=== PATIENT | male | born 1980 | race Caucasian/White ===

== ENCOUNTER 2020-08-01 17:07 | Inpatient (IN) | payer SELFPAY ==
[~2020-08-01] VITALS: Ht 185.4 cm; Wt 63.1 kg
[2020-08-01 17:24] VITALS: BP 142/93
[2020-08-01 18:14] LABS: HEMATOCRIT 39.4 % (42.0-52.0); MEAN CELL VOLUME 88.3 fl (80.0-94.0); MEAN CORPUSCULAR HGB 35.2 pg (27.0-31.0); MEAN PLATELET VOLUME 8.8 fl (9.6-12.3); PLATELET COUNT AUTOMATED 212 10*3/uL (130-400); RED BLOOD COUNT 4.46 10*6/uL (4.50-5.90); RED CELL DISTRI WIDTH 10.8 % (0-14.5); WHITE BLOOD COUNT 13.1 10*3/uL (4.8-10.8)
[2020-08-01 18:26] LABS: ACT PARTIAL THROMBO TIME 30.5 SECONDS (20.0-32.1)
[2020-08-01 18:29] LABS: MEAN CORPUSCULAR HGB CONC 39.8 g/dl (33.0-37.0)
[2020-08-01 18:30] LABS: ALBUMIN 3.7 gm/dl (3.1-4.5); ALKALINE PHOSPHATASE 99 U/L (45-117); BUN 16 mg/dl (7-24); CREATININE 0.73 mg/dL (0.70-1.30); LIPASE 60 U/L (73-393); SGOT/AST 346 IU/L (3-35); SGPT/ALT 87 U/L (12-78); TOTAL PROTEIN 7.9 gm/dL (6.4-8.2)
[2020-08-01 18:34] LABS: SODIUM 98 mmol/L (136-145)
[2020-08-01 18:35] LABS: ACETAMINOPHEN (TYLENOL) < 5.0 ug/ml (10-30); CHLORIDE < 50 mmol/L (98-107); ETHYL ALCOHOL < 3.0 mg/dl (<3); TROPONIN I < 0.015 ng/ml (<0.045)
[2020-08-01 18:52] LABS: ATYPICAL LYMPHS 2 % (0-0); TOTAL CELLS COUNTED 100 #CELLS
[2020-08-01 18:53] LABS: PLATELET SUFFICIENCY NORMAL (NORMAL)
[2020-08-01 19:17] LABS: BILIRUBIN Negative (Negative); BLOOD 3+ (Negative); CLARITY Clear (Clear); COLOR Dark Yellow (Yellow); GLUCOSE Negative (Negative); KETONE 1+ (Negative); LEUKO ESTERASE Negative (Negative); NITRITE Negative (Negative); SPECIFIC GRAVITY 1.015 (1.001-1.030)
[2020-08-01 19:21] LABS: EPITHELIAL CELLS 0-2; FINE GRANULAR CAST 0-2
[2020-08-01 19:22] LABS: BACTERIA TRACE
[2020-08-01 19:25] LABS: URINE AMPHETAMINES < 1000 (1000ng/ml); URINE BARBITURATES < 200 (200ng/ml); URINE BENZODIAZEPINES < 200 (200ng/ml); URINE CANNABINOIDS (THC) < 50 (50ng/ml); URINE COCAINE < 300 (300ng/ml); URINE METHADONE < 300 (300ng/ml); URINE OPIATES < 300 (300ng/ml)
[2020-08-01 19:27] LABS: URINE PHENCYCLIDINE < 25 (25ng/ml)
[2020-08-01 20:00] VITALS: BP 152/88
[2020-08-01 20:40] VITALS: BP 142/93; BP 152/88
[2020-08-01 21:17] LABS: ALBUMIN 3.5 gm/dl (3.1-4.5); ALKALINE PHOSPHATASE 96 U/L (45-117); BUN 16 mg/dl (7-24); CREATININE 0.75 mg/dL (0.70-1.30); SGOT/AST 328 IU/L (3-35); SGPT/ALT 84 U/L (12-78); TOTAL PROTEIN 7.8 gm/dL (6.4-8.2)
[2020-08-01 21:20] LABS: CHLORIDE 51 mmol/L (98-107); POTASSIUM 2.2 mmol/L (3.5-5.1); SODIUM 99 mmol/L (136-145)
[2020-08-02] VITALS: BP 139/81
[2020-08-02 00:55] LABS: ALBUMIN 3.5 gm/dl (3.1-4.5); ALKALINE PHOSPHATASE 95 U/L (45-117); BUN 14 mg/dl (7-24); CREATININE 0.64 mg/dL (0.70-1.30); SGOT/AST 307 IU/L (3-35); SGPT/ALT 80 U/L (12-78); TOTAL PROTEIN 7.4 gm/dL (6.4-8.2)
[2020-08-02 01:05] LABS: POTASSIUM 2.3 mmol/L (3.5-5.1); SODIUM 103 mmol/L (136-145)
[2020-08-02 01:06] LABS: CHLORIDE 52 mmol/L (98-107)
[2020-08-02 01:07] LABS: URINE CHLORIDE, RANDOM < 10 mmol/L
[2020-08-02 02:21] LABS: ALBUMIN 3.5 gm/dl (3.1-4.5); ALKALINE PHOSPHATASE 97 U/L (45-117); BUN 13 mg/dl (7-24); CREATININE 0.73 mg/dL (0.70-1.30); SGOT/AST 309 IU/L (3-35); SGPT/ALT 84 U/L (12-78); TOTAL PROTEIN 7.7 gm/dL (6.4-8.2)
[2020-08-02 02:22] LABS: POTASSIUM 2.7 mmol/L (3.5-5.1)
[2020-08-02 02:24] LABS: CHLORIDE 56 mmol/L (98-107); SODIUM 100 mmol/L (136-145)
[2020-08-02 04:00] VITALS: BP 130/76
[2020-08-02 04:31] LABS: ALBUMIN 3.5 gm/dl (3.1-4.5); ALKALINE PHOSPHATASE 100 U/L (45-117); BUN 13 mg/dl (7-24); CREATININE 0.65 mg/dL (0.70-1.30); POTASSIUM 2.5 mmol/L (3.5-5.1); SGOT/AST 288 IU/L (3-35); SGPT/ALT 82 U/L (12-78); TOTAL PROTEIN 7.8 gm/dL (6.4-8.2)
[2020-08-02 04:32] LABS: FREE T4 1.39 ng/dl (0.76-1.46)
[2020-08-02 04:36] LABS: CHLORIDE 58 mmol/L (98-107); SODIUM 103 mmol/L (136-145)
[2020-08-02 04:50] LABS: BASO % 0.2 % (0.0-1.0); EOS % 0.2 % (1.0-4.0); LYMPH # 0.8 10*3/uL (1.3-4.4); LYMPH % 6.1 % (27.0-41.0); MEAN CELL VOLUME 90.7 fl (80.0-94.0); MEAN CORPUSCULAR HGB 35.6 pg (27.0-31.0); MEAN PLATELET VOLUME 8.9 fl (9.6-12.3); MONO % 7.5 % (3.0-9.0); NEUT # 11.3 10*3/uL (2.3-7.9); NEUT % 85.7 % (47.0-73.0); PLATELET COUNT AUTOMATED 188 10*3/uL (130-400); RED BLOOD COUNT 4.52 10*6/uL (4.50-5.90); WHITE BLOOD COUNT 13.1 10*3/uL (4.8-10.8)
[2020-08-02 05:35] LABS: MEAN CORPUSCULAR HGB CONC 39.3 g/dl (33.0-37.0)
[2020-08-02 06:51] LABS: ALBUMIN 3.8 gm/dl (3.1-4.5); ALKALINE PHOSPHATASE 102 U/L (45-117); BUN 12 mg/dl (7-24); CREATININE 0.81 mg/dL (0.70-1.30); POTASSIUM 3.2 mmol/L (3.5-5.1); SGOT/AST 289 IU/L (3-35); SGPT/ALT 85 U/L (12-78)
[2020-08-02 07:01] LABS: CHLORIDE 58 mmol/L (98-107); SODIUM 106 mmol/L (136-145)
[2020-08-02] MEDS ORDERED: CHLORTHALIDONE50 MG PO (07:16)
[2020-08-02 08:00] VITALS: BP 139/82
[2020-08-02 09:27] LABS: ALBUMIN 3.6 gm/dl (3.1-4.5); BUN 12 mg/dl (7-24); SGOT/AST 260 IU/L (3-35); SGPT/ALT 83 U/L (12-78)
[2020-08-02 09:30] LABS: ALKALINE PHOSPHATASE 101 U/L (45-117); CREATININE 0.64 mg/dL (0.70-1.30); TOTAL PROTEIN 7.8 gm/dL (6.4-8.2)
[2020-08-02 09:34] LABS: SODIUM 106 mmol/L (136-145)
[2020-08-02 09:36] LABS: CHLORIDE 61 mmol/L (98-107); POTASSIUM 2.2 mmol/L (3.5-5.1)
[2020-08-02 11:20] LABS: BUN 12 mg/dl (7-24); CREATININE 0.68 mg/dL (0.70-1.30)
[2020-08-02 11:26] LABS: POTASSIUM 2.1 mmol/L (3.5-5.1); SODIUM 106 mmol/L (136-145)
[2020-08-02 11:27] LABS: CHLORIDE 61 mmol/L (98-107)
[2020-08-02 12:00] VITALS: BP 112/93
[2020-08-02 15:20] LABS: BUN 11 mg/dl (7-24); CREATININE 0.68 mg/dL (0.70-1.30)
[2020-08-02 15:32] LABS: CHLORIDE 64 mmol/L (98-107); POTASSIUM 2.3 mmol/L (3.5-5.1); SODIUM 112 mmol/L (136-145)
[2020-08-02 16:00] VITALS: BP 122/86
[2020-08-02 18:39] LABS: BUN 11 mg/dl (7-24); CREATININE 0.72 mg/dL (0.70-1.30); POTASSIUM 2.8 mmol/L (3.5-5.1)
[2020-08-02 18:45] LABS: CHLORIDE 69 mmol/L (98-107); SODIUM 111 mmol/L (136-145)
[2020-08-02 20:00] VITALS: BP 122/90
[2020-08-02 22:42] LABS: BUN 11 mg/dl (7-24); CREATININE 0.65 mg/dL (0.70-1.30); POTASSIUM 2.8 mmol/L (3.5-5.1)
[2020-08-02 22:44] LABS: CHLORIDE 73 mmol/L (98-107); SODIUM 114 mmol/L (136-145)
[2020-08-03] VITALS: BP 158/90
[2020-08-03 04:00] VITALS: BP 145/86
[2020-08-03 07:05] LABS: ALKALINE PHOSPHATASE 92 U/L (45-117); BUN 10 mg/dl (7-24); CHLORIDE 79 mmol/L (98-107); CREATININE 0.62 mg/dL (0.70-1.30); POTASSIUM 3.1 mmol/L (3.5-5.1); SGOT/AST 124 IU/L (3-35); SGPT/ALT 67 U/L (12-78); TOTAL PROTEIN 6.8 gm/dL (6.4-8.2)
[2020-08-03 07:14] LABS: SODIUM 118 mmol/L (136-145)
[2020-08-03 08:00] VITALS: BP 171/96
[2020-08-03 08:30] LABS: BASO % 0.2 % (0.0-1.0); EOS % 0.4 % (1.0-4.0); HEMATOCRIT 39.9 % (42.0-52.0); LYMPH # 1.3 10*3/uL (1.3-4.4); LYMPH % 14.6 % (27.0-41.0); MEAN CORPUSCULAR HGB 35.4 pg (27.0-31.0); MEAN CORPUSCULAR HGB CONC 36.6 g/dl (33.0-37.0); MEAN PLATELET VOLUME 9.2 fl (9.6-12.3); MONO # 0.9 10*3/uL (0.1-1.0); MONO % 10.3 % (3.0-9.0); NEUT # 6.7 10*3/uL (2.3-7.9); NEUT % 74.1 % (47.0-73.0); PLATELET COUNT AUTOMATED 189 10*3/uL (130-400); RED BLOOD COUNT 4.12 10*6/uL (4.50-5.90); RED CELL DISTRI WIDTH 11.4 % (0-14.5)
[2020-08-03 08:31] LABS: MEAN CELL VOLUME 96.8 fl (80.0-94.0)
[2020-08-03 12:00] VITALS: BP 175/115
[2020-08-03 16:00] VITALS: BP 145/81
[2020-08-03 20:00] VITALS: BP 151/97
[2020-08-03 22:42] LABS: ALBUMIN 2.8 gm/dl (3.1-4.5); BUN 5 mg/dl (7-24); CHLORIDE 89 mmol/L (98-107); CREATININE 0.51 mg/dL (0.70-1.30); POTASSIUM 3.4 mmol/L (3.5-5.1); SODIUM 124 mmol/L (136-145)
[2020-08-04] VITALS (11 sets, daily range): BP systolic 103–169; BP diastolic 48–118
[2020-08-04 05:58] LABS: ALBUMIN 2.8 gm/dl (3.1-4.5); ALKALINE PHOSPHATASE 81 U/L (45-117); BUN 4 mg/dl (7-24); CHLORIDE 91 mmol/L (98-107); CREATININE 0.49 mg/dL (0.70-1.30); POTASSIUM 3.5 mmol/L (3.5-5.1); SGOT/AST 77 IU/L (3-35); SGPT/ALT 56 U/L (12-78); SODIUM 125 mmol/L (136-145); TOTAL PROTEIN 6.1 gm/dL (6.4-8.2)
[2020-08-04 19:23] LABS: ALBUMIN 2.9 gm/dl (3.1-4.5); BUN 5 mg/dl (7-24); CHLORIDE 93 mmol/L (98-107); CREATININE 0.65 mg/dL (0.70-1.30); POTASSIUM 3.2 mmol/L (3.5-5.1); SODIUM 128 mmol/L (136-145)
[2020-08-05] VITALS: BP 93/57
[2020-08-05 04:00] VITALS: BP 132/95
[2020-08-05 06:08] LABS: CHLORIDE 96 mmol/L (98-107); POTASSIUM 3.5 mmol/L (3.5-5.1); SODIUM 131 mmol/L (136-145)
[2020-08-05 06:15] LABS: ALBUMIN 2.8 gm/dl (3.1-4.5); ALKALINE PHOSPHATASE 83 U/L (45-117); BUN 5 mg/dl (7-24); CREATININE 0.56 mg/dL (0.70-1.30); SGOT/AST 57 IU/L (3-35); SGPT/ALT 56 U/L (12-78); TOTAL PROTEIN 6.2 gm/dL (6.4-8.2)
[2020-08-05 08:00] VITALS: BP 156/97
[2020-08-05 12:00] VITALS: BP 120/86
[2020-08-05 16:00] VITALS: BP 121/80
[2020-08-05 20:00] VITALS: BP 140/90
[2020-08-06] VITALS: BP 118/78
[2020-08-06 08:00] VITALS: BP 129/95
[2020-08-06 10:59] LABS: ALBUMIN 2.9 gm/dl (3.1-4.5); BUN 6 mg/dl (7-24); CHLORIDE 97 mmol/L (98-107); CREATININE 0.58 mg/dL (0.70-1.30); POTASSIUM 3.4 mmol/L (3.5-5.1); SODIUM 133 mmol/L (136-145)
[2020-08-06 12:00] VITALS: BP 116/76
[2020-08-06 16:00] VITALS: BP 168/102
[2020-08-06 20:00] VITALS: BP 160/106
[2020-08-06 21:50] VITALS: BP 142/86
[2020-08-07] VITALS: BP 137/69
[2020-08-07 05:29] LABS: BUN 5 mg/dl (7-24); CHLORIDE 99 mmol/L (98-107); CREATININE 0.79 mg/dL (0.70-1.30); SODIUM 134 mmol/L (136-145)
[2020-08-07 08:00] VITALS: BP 144/98
[2020-08-07] MEDS ORDERED: 'CLONIDINE0.1 MG PO ×2 (10:11→10:14)
[2020-08-07 12:00] VITALS: BP 140/90
== END 2020-08-07 14:32 | disposition home or self-care (01) | DRG 41 ==
LOC: ED 17:07 → ICCU 19:23 → EDHOLD 19:23 → ICCU 20:26 → 4E 08-05 23:58
PROVIDERS: Emergency Medicine; Family Medicine; Hospitalist; Internal Medicine; Internal Medicine Nephrology; ADMIT Internal Medicine; ATTEND Internal Medicine
PROC: 0JBG0ZZ Excision of Right Lower Arm Subcutaneous Tissue and Fascia, Open Approach (ICD-10-PCS; principal; 2020-08-04)
DX: G93.41 Metabolic encephalopathy (principal); E87.1 Hypo-osmolality and hyponatremia; E87.6 Hypokalemia; E83.41 Hypermagnesemia; E87.8 Other disorders of electrolyte and fluid balance, not elsewhere classified; R70.0 Elevated erythrocyte sedimentation rate; R82.4 Acetonuria; R80.9 Proteinuria, unspecified; E86.0 Dehydration; F10.10 Alcohol abuse, uncomplicated; R31.29 Other microscopic hematuria; I10 Essential (primary) hypertension; L98.499 Non-pressure chronic ulcer of skin of other sites with unspecified severity; E83.39 Other disorders of phosphorus metabolism; R74.01 Elevation of levels of liver transaminase levels; R79.82 Elevated C-reactive protein (CRP); F17.210 Nicotine dependence, cigarettes, uncomplicated; S51.811A Laceration without foreign body of right forearm, initial encounter; X58.XXXA Exposure to other specified factors, initial encounter; Y93.89 Activity, other specified; Y92.89 Other specified places as the place of occurrence of the external cause; Y99.8 Other external cause status

== ENCOUNTER 2020-08-08 19:26 | Emergency (ER) | payer SELFPAY ==
[~2020-08-08] VITALS: Ht 182.8 cm; Wt 68.0 kg
[~2020-08-08 19:26] MED LIST: 'CLONIDINE0.1 MG PO; CHLORTHALIDONE50 MG PO
[2020-08-08 19:48] LABS: BASO # 0.1 10*3/uL (0.0-0.1); EOS # 0.1 10*3/uL (0.0-0.4); EOS % 1.1 % (1.0-4.0); HEMATOCRIT 40.8 % (42.0-52.0); LYMPH # 1.5 10*3/uL (1.3-4.4); LYMPH % 24.4 % (27.0-41.0); MEAN CORPUSCULAR HGB 35.1 pg (27.0-31.0); MEAN CORPUSCULAR HGB CONC 34.8 g/dl (33.0-37.0); MEAN PLATELET VOLUME 8.2 fl (9.6-12.3); MONO # 0.7 10*3/uL (0.1-1.0); MONO % 11.2 % (3.0-9.0); NEUT # 3.8 10*3/uL (2.3-7.9); NEUT % 61.8 % (47.0-73.0); PLATELET COUNT AUTOMATED 282 10*3/uL (130-400); RED BLOOD COUNT 4.04 10*6/uL (4.50-5.90); WHITE BLOOD COUNT 6.1 10*3/uL (4.8-10.8)
[2020-08-08 20:03] LABS: ALBUMIN 3.2 gm/dl (3.1-4.5); ALKALINE PHOSPHATASE 85 U/L (45-117); BUN 2 mg/dl (7-24); CHLORIDE 97 mmol/L (98-107); CREATININE 0.62 mg/dL (0.70-1.30); POTASSIUM 3.3 mmol/L (3.5-5.1); SGOT/AST 51 IU/L (3-35); SGPT/ALT 48 U/L (12-78); SODIUM 134 mmol/L (136-145); TOTAL PROTEIN 7.2 gm/dL (6.4-8.2)
[2020-08-08 22:31] LABS: BILIRUBIN Negative (Negative); BLOOD Negative (Negative); CLARITY Clear (Clear); COLOR Yellow (Yellow); GLUCOSE Negative (Negative); KETONE Negative (Negative); LEUKO ESTERASE Negative (Negative); NITRITE Negative (Negative); PH 6.5 (4.5-8.0); SPECIFIC GRAVITY <= 1.005 (1.001-1.030)
[2020-08-08 22:40] LABS: URINE AMPHETAMINES < 1000 (1000ng/ml); URINE BARBITURATES < 200 (200ng/ml); URINE BENZODIAZEPINES > 200 (200ng/ml); URINE CANNABINOIDS (THC) < 50 (50ng/ml); URINE COCAINE < 300 (300ng/ml); URINE METHADONE < 300 (300ng/ml); URINE OPIATES < 300 (300ng/ml)
[2020-08-08 22:49] LABS: URINE PHENCYCLIDINE < 25 (25ng/ml)
[2020-08-08 23:05] LABS: RBC 0-2 rbc/hpf (0-2); WBC 0-2 wbc/hpf (0-5)
[2020-08-08 23:06] LABS: BACTERIA TRACE; EPITHELIAL CELLS 0-2
== END 2020-08-09 00:30 | disposition short-term general hospital (02) ==
LOC: ED 19:26
PROVIDERS: Internal Medicine
DX: I62.9 Nontraumatic intracranial hemorrhage, unspecified (principal); E87.8 Other disorders of electrolyte and fluid balance, not elsewhere classified; D75.89 Other specified diseases of blood and blood-forming organs; R56.9 Unspecified convulsions; F17.210 Nicotine dependence, cigarettes, uncomplicated; Z79.899 Other long term (current) drug therapy; Z98.890 Other specified postprocedural states